=== PATIENT | female | born 1995 | race Caucasian/White ===

== ENCOUNTER 2019-04-28 11:32 | Observation (INO) | payer OTHER, MEDICAID ==
[2019-04-28] MEDS ORDERED: Sodium Chloride 0.9% 1000 ML 1,000 ML IV SCH (12:45)
[2019-04-28] MEDS ORDERED: NORCO 5/325 MG PO PRN (12:46)
[2019-04-28] MEDS ORDERED: Zofran 4 MG/2 ML VIAL IV PRN (12:46)
[2019-04-28] MEDS ORDERED: MORPHINE SULFATE 10 MG/ML IV PRN (12:48)
[2019-04-28 12:53] LABS: Absolute Neutrophil Ct (ANC) 8.81 (1.4-6.9); BASOPHIL % 0.2 % (0.0-0.4); Basophil (Absolute #) 0.02 (0-0.4); Eosinophil % 0.4 % (0.00-5.0); Eosinophil (Absolute #) 0.05 (0-0.5); Hematocrit 30.6 % (35-47); Hemoglobin 10.6 gm/dl (12.0-16.0); Lymphocyte (Absolute #) 1.63 (1.0-4.6); Lymphocytes % 14.6 % (24.0-44.0); Mean Cell Volume 92.7 fl (78-100); Mean Corpuscular Hemoglobin 32.1 pg (26-32); Mean Corpuscular Hgb Concent. 34.6 g/dl (32-36); Mean Platelet Volume 10.3 fl (6-9.5); Monocyte (Absolute #) 0.66 (0.0-1.3); Monocytes % 5.9 % (0.0-12.0); Neutrophil % 78.9 % (36.0-66.0); Platelet Count 196 K/mm3 (150-450); Red Cell Distribution Width 13.2 % (11.5-14.0); White Blood Count 11.2 K/mm3 (4.0-10.5)
[2019-04-28 12:58] LABS: ALBUMIN 3.7 g/dL (3.5-5.0); ALKALINE PHOSPHATASE 55 U/L (38-126); ANION GAP 11.2 MEQ/L (5-15); BLOOD UREA NITROGEN 4 mg/dL (7-17); CHLORIDE 110 mmol/L (98-107); Carbon Dioxide 22 mmol/L (22-30); Creatinine 1 0.36 mg/dL (0.52-1.04); Glucose 78 mg/dL (74-106); Potassium 3.8 mmol/L (3.5-5.1); SGOT/AST 33 U/L (14-36); SGPT/ALT 34 U/L (0-35); SODIUM 139 mmol/L (137-145); Total Protein 6.9 g/dL (6.3-8.2)
--- NOTE | 2019-04-28 13:42 | XRAY ---
Indication: Right lower quadrant pain. UTI. Two-dimensional targeted ultrasound of the right lower quadrant of the abdomen performed. Appendix not identified. No solid/cystic mass or abnormal fluid collection. Impression: Negative targeted right lower quadrant sonogram.
--- NOTE | 2019-04-28 13:45 | XRAY ---
Indication: Right lower quadrant pain. UTI. 2-dimensional OB ultrasound performed. Comparison: None There is a single viable intrauterine currently in cephalic presentation. Normal four-chamber heart with heart rate 150 bpm. Normal three-vessel cord and cord insertion. Visualized spine, stomach, kidneys, and bladder are unremarkable. Anterior placenta without abruption/previa. Cervical length measures 3.5 cm. BPD measures 4.05 cm corresponding to 18 weeks 2 days. HC measures 14.69 cm corresponding to 17 weeks 6 days. AC measures 11.92 cm corresponding to 17 weeks 4 days. FL measures 2.51 cm corresponding to 17 weeks 4 days. NEAL is 15.1 cm. Impression: Single viable intrauterine with mean gestational age 17 weeks 6 days. Expected date confinement is September 30, 2019.
[2019-04-28] MEDS: Lactated Ringers 1,000 ML IV SCH (14:07)
[2019-04-28] MEDS: ROCEPHIN 1 Gm-D5w 50 ml Bag** 1 G/50 ML IVPB IV SCH (14:07)
[2019-04-28] MEDS: THERAGRAN MULTIVITAMIN PO SCH (14:41)
[2019-04-28] MEDS: TYLENOL 325 MG PO PRN ×2 (14:41→21:34)
[2019-04-29] MEDS: Lactated Ringers 1,000 ML IV SCH ×3 (00:26→19:51)
[2019-04-29] MEDS: TYLENOL 325 MG PO PRN (07:32)
--- NOTE | 2019-04-29 08:09 | PCM.HP.ADD ---
Addendum to History & Physical - History & Physical Addendum Addendum to History & Physical: This certifies that the History & Physical in the electronic chart reflects the current health status of the patient. If there are changes in the H&P these changes/exceptions are listed as follows.
--- NOTE | 2019-04-29 08:31 | PCM.NOTE ---
Date and Time: 04/29/19824 Subjective Assessment: Pt is feeling better, still having 4/10 RLQ pain with movement (but no pain with rest). No nausea. Iris po. - Review of Systems Constitutional: No Fever Abdominal/Gastrointestinal: Abdominal Pain Objective Exam General Appearance: no apparent distress, alert Neurologic Exam: oriented x 3, cooperative Skin Exam: normal color, warm, dry, No rash Ears, Nose, Throat Exam: moist mucous membranes Neck Exam: normal inspection Respiratory Exam: normal breath sounds, lungs clear, No crackles/rales, No rhonchi, No wheezing Cardiovascular Exam: regular rate/rhythm, normal heart sounds, No murmur Gastrointestinal/Abdomen Exam: soft, normal bowel sounds, tenderness (RLQ), other (gravid), No guarding Extremity Exam: normal inspection, No pedal edema, No swelling Back Exam: normal inspection, No rash OBJECTIVE DATA Vital Signs: Vital Signs - 24 hr Temp Pulse Resp BP BP Pulse Ox 04/29/19 08:00 98.0 F 73 18 105/61 95 04/29/19 04:00 98.1 F 65 18 99/54 95 04/28/19 23:56 97.9 F 66 18 106/59 96 04/28/19 20:00 98.3 F 71 18 115/64 98 04/28/19 16:00 97.9 F 77 16 111/59 95 04/28/19 11:56 98.2 F 70 18 119/62 96 04/28/19 11:46 98.0 F 70 16 199/62 96 Pain Assessment - Last Documented Pain Intensity 5 Pain Scale Used 0-10 Pain Scale Intake and Output: Intake & Output 04/26/19 04/27/19 04/28/19 04/29/19 11:59 11:59 11:59 11:59 Intake Total 860 Output Total 3550 Balance -2690 Weight 67.6 kg Lab Results: Lab Results-Last 24 Hours 04/28/19 04/28/19 Range/Units 12:40 12:40 WBC 11.2 H (4.0-10.5) K/mm3 RBC 3.30 L (4.1-5.4) M/mm3 Hgb 10.6 L (12.0-16.0) gm/dl Hct 30.6 L (35-47) % MCV 92.7 (78-100) fl MCH 32.1 H (26-32) pg MCHC 34.6 (32-36) g/dl RDW 13.2 (11.5-14.0) % Plt Count 196 (150-450) K/mm3 MPV 10.3 H (6-9.5) fl Gran % 78.9 H (36.0-66.0) % Eos # (Auto) 0.05 (0-0.5) Absolute Lymphs (auto) 1.63 (1.0-4.6) Absolute Monos (auto) 0.66 (0.0-1.3) Lymphocytes % 14.6 L (24.0-44.0) % Monocytes % 5.9 (0.0-12.0) % Eosinophils % 0.4 (0.00-5.0) % Basophils % 0.2 (0.0-0.4) % Absolute Granulocytes 8.81 H (1.4-6.9) Basophils # 0.02 (0-0.4) Sodium 139 (137-145) mmol/L Potassium 3.8 (3.5-5.1) mmol/L Chloride 110 H (98-107) mmol/L Carbon Dioxide 22 (22-30) mmol/L Anion Gap 11.2 (5-15) MEQ/L BUN 4 L (7-17) mg/dL Creatinine 0.36 L (0.52-1.04) mg/dL Estimated GFR > 60.0 ML/MIN Glucose 78 (74-106) mg/dL Calcium 9.0 (8.4-10.2) mg/dL Total Bilirubin 0.30 (0.2-1.3) mg/dL AST 33 (14-36) U/L ALT 34 (0-35) U/L Alkaline Phosphatase 55 (38-126) U/L Serum Total Protein 6.9 (6.3-8.2) g/dL Albumin 3.7 (3.5-5.0) g/dL Radiology Exams: Radiology Procedures Category Date Time Status ABDOMINAL-LIMITED [US] Routine Exams 04/28/19 12:15 Completed OB >14 WKS 1st GESTATION [US] Routine Exams 04/28/19 12:40 Completed Assessment/Plan (1) UTI (urinary tract infection) Current Visit: Yes Status: Acute Qualifiers: Urinary tract infection type: acute cystitis Hematuria presence: without hematuria Qualified Code(s): N30.00 - Acute cystitis without hematuria Assessment & Plan: Urine culture + for gram negative rods (UA was done at [facility], so culture result is available in [place]). U/s with appendix not visualized. Day #2 IV rocephin. Pt to stay at least one more day (if culture results in and pt feeling better tomorrow, may go home then). Code(s): N39.0 - URINARY TRACT INFECTION, SITE NOT SPECIFIED (2) Current Visit: Yes Status: Acute Qualifiers: Weeks of gestation: 16 weeks Qualified Code(s): Z3A.16 - 16 weeks gestation of Assessment & Plan: 16w 6d by LMP (sure) - u/s with nl 17wk fetus. FHT q shift. Code(s): Z34.90 - ENCNTR FOR SUPRVSN OF NORMAL , UNSP, UNSP TRIMESTER
[2019-04-29] MEDS: ROCEPHIN 1 Gm-D5w 50 ml Bag** 1 G/50 ML IVPB IV SCH (09:50)
[2019-04-29] MEDS: THERAGRAN MULTIVITAMIN PO SCH (09:50)
[2019-04-29] MEDS ORDERED: NON-FORMULARY ITEM (Prenatal Vits W-Ca,Fe,Fa(<1mg) [Prenatal] 1 EACH) PO SCH (10:00)
[2019-04-30] MEDS: TYLENOL 325 MG PO PRN (00:28)
[2019-04-30] MEDS: Lactated Ringers 1,000 ML IV SCH (03:40)
[2019-04-30 07:29] VITALS: BP 113/63; PULSE 72; O2SAT 99
--- NOTE | 2019-04-30 09:29 | PCM.DS ---
Discharge Summary Date of Admission: 04/28/19 11:32 Date of Discharge: 04/30/19 Admitting Physician: RANCHO STRICKLAND Primary Care Provider: YOJANA VERAS Allergies Allergies No Known Drug Allergies Allergy (Verified 04/28/19 11:58) Hospital Summary - Hospital Course Hospital Course: 23 yr old female 16 weeks and 5 days directly admitted from office for R lower quadrant pain and UTI. Patient was having significant R sided abdominal pain. OB US performed demonstrated : Single viable intrauterine with mean gestational age 17 weeks 6 days. Expected date confinement is September 30, 2019. Patient also had a abdominal US which was neg for acute appendicitis or any other pathology. Patient was started on IV fluids and Rocephin with urine cultures still pending. Patient was also started on pain medication and patient's symptoms started to improve. Patient reports this am she feels well enough to go home. Patient denies any abdominal pain,nausea or vomiting, vision changes, diarrhea or constipation. Patient reports that she has had a headache on and off during admission and reports the Tyelnol is helping. - Vitals & Intake/Output Vital Signs: Vital Signs Temperature 97.8 F 04/30/19 07:28 Pulse Rate 72 04/30/19 07:28 Respiratory Rate 18 04/30/19 07:28 Blood Pressure 113/63 04/30/19 07:28 O2 Sat by Pulse Oximetry 99 04/30/19 07:28 Intake & Output: Intake & Output 04/27/19 04/28/19 04/29/19 04/30/19 11:59 11:59 11:59 11:59 Intake Total 1340 4237 Output Total 3550 3500 Balance -2210 737 Weight 67.6 kg - Lab Result Diagrams: 04/28/19 12:40 04/28/19 12:40 - Radiology Exams Ordered Rad Exams-Entire Visit: Radiology Procedures Category Date Time Status ABDOMINAL-LIMITED [US] Routine Exams 04/28/19 12:15 Completed OB >14 WKS 1st GESTATION [US] Routine Exams 04/28/19 12:40 Completed Discharge Exam General Appearance: no apparent distress Neurologic Exam: alert, oriented x 3, cooperative, normal mood/affect Eye Exam: eyes nml inspection Ears, Nose, Throat Exam: normal ENT inspection Neck Exam: normal inspection Respiratory Exam: normal breath sounds, lungs clear, No respiratory distress, No diminished breath sounds Cardiovascular Exam: regular rate/rhythm, normal heart sounds, No murmur Gastrointestinal/Abdomen Exam: soft, normal bowel sounds Back Exam: normal inspection Extremity Exam: normal inspection, No pedal edema Skin Exam: normal color, warm, dry, No rash Final Diagnosis/Problem List - Final Discharge Diagnosis/Problem (1) UTI (urinary tract infection) Current Visit: Yes Status: Acute Assessment & Plan: Symptoms have resolved. Culture showed ecoli sensitive to cephalsporins. Patient has received two doses and will be sent home with 5 days of keflex to complete course. Patient has remained afebrile and VSS. Patient was encouraged to take probiotic with antibiotics. Code(s): N39.0 - URINARY TRACT INFECTION, SITE NOT SPECIFIED (2) Current Visit: Yes Status: Acute Assessment & Plan: US performed in hospital showed normal appearing inter-uterine preg measuring appropriately. FHT wnl at 150. Patient reports she is taking her vitamins. Discussed Tyelnol for headaches and discomfort. Patient will follow up for routine care. Code(s): Z34.90 - ENCNTR FOR SUPRVSN OF NORMAL , UNSP, UNSP TRIMESTER - Discharge Disposition: Home, Self-Care Condition: Good Prescriptions: New Cephalexin Mh 500 mg [Keflex 500 mg] 500 mg PO 12 5 Days #10 capsule Continue Vits W-Ca,Fe,FA(<1Mg) [] 1 each PO DAILY Follow up with: YOJANA VERAS [Primary Care Provider] - 1 Week
[2019-04-30] MEDS: ROCEPHIN 1 Gm-D5w 50 ml Bag** 1 G/50 ML IVPB IV SCH (10:22)
[2019-04-30] MEDS: THERAGRAN MULTIVITAMIN PO SCH (10:45)
== END 2019-04-30 11:09 | disposition home or self-care (01) ==
LOC: INTOOBSV 11:32 → OBSVTOIN 11:32 → MED SURG 11:32
PROVIDERS: ADMIT Family Medicine; ATTEND Family Medicine
DX: O23.42 Unspecified infection of urinary tract in pregnancy, second trimester (principal); Z3A.17 17 weeks gestation of pregnancy
CPT/HCPCS: 36415; 76705; 76805; 80053; 81015; 85025; 87077; 87086; 87186; G0378; J0696; A9270-GY

== ENCOUNTER 2019-10-02 16:30 | Inpatient (IN) | payer OTHER, MEDICAID ==
[2019-10-02] MEDS ORDERED: Lactated Ringers 1,000 ML IV ONE ×3 (17:05→18:13)
[2019-10-02] MEDS ORDERED: Ephedrine Sulfate 50 MG/ML IV PRN (17:23)
[2019-10-02] MEDS ORDERED: OB EPIDURAL NAROPIN/SUFENTANIL IN NACL EPIDURAL PRN (17:23)
[2019-10-02 17:40] LABS: Hematocrit 35.3 % (35-47); Hemoglobin 11.7 gm/dl (12.0-16.0); Mean Cell Volume 92.9 fl (78-100); Mean Corpuscular Hemoglobin 30.8 pg (26-32); Mean Corpuscular Hgb Concent. 33.1 g/dl (32-36); Mean Platelet Volume 11.9 fl (7.5-11.0); Platelet Count 198 K/mm3 (150-450); Red Cell Distribution Width 13.9 % (11.5-14.0); White Blood Count 12.8 K/mm3 (4.0-10.5)
[2019-10-02] MEDS ORDERED: PITOCIN 30 UNITS/ LR 500 ML 500 ML IV ONE (19:13)
[2019-10-02] MEDS ORDERED: XYLOCAINE 1% HCL 20 ML MDV ONE (19:15)
[2019-10-02] MEDS ORDERED: Zofran 4 MG/2 ML VIAL IV STA (19:18)
[2019-10-02 19:28] VITALS: O2SAT 100
[2019-10-02] MEDS ORDERED: PITOCIN 30 UNITS/ LR 500 ML 500 ML IV SCH (19:45)
[2019-10-02] MEDS ORDERED: XYLOCAINE 1% HCL 20 ML MDV IJ PRN (20:20)
[2019-10-02 20:38] LABS: Amphetamine,Urine NEGATIVE (NEGATIVE); Barbiturate,Urine NEGATIVE (NEGATIVE); Benzodiazepine,Urine NEGATIVE (NEGATIVE); Cocaine,Urine NEGATIVE (NEGATIVE); Methadone,Urine NEGATIVE (NEGATIVE); Opiate,Urine NEGATIVE (NEGATIVE); PCP,Urine NEGATIVE (NEGATIVE); THC,Urine NEGATIVE (NEGATIVE)
[2019-10-02] MEDS ORDERED: Anucort-HC SUPPOSITORY PR PRN (20:52)
[2019-10-02] MEDS ORDERED: Mylicon 80MG PO PRN (20:52)
[2019-10-02] MEDS ORDERED: TYLENOL EXTRA STRENGTH 500 MG PO PRN (20:52)
[2019-10-02] MEDS ORDERED: Dulcolax 10 MG SUPP PR PRN (20:52)
[2019-10-02] MEDS ORDERED: CORTISONE 1% CREAM TP PRN (20:52)
[2019-10-02] MEDS ORDERED: TUCKS TP PRN (20:52)
[2019-10-02] MEDS ORDERED: Dermoplast Spray TP PRN (20:52)
[2019-10-02] MEDS ORDERED: LANSINOH 40 GM TOP PRN (20:52)
[2019-10-02] MEDS ORDERED: NORCO 5/325 MG PO PRN (20:52)
[2019-10-02] MEDS: Colace 100 MG PO SCH (23:45)
[2019-10-03 05:30] LABS: Hematocrit 30.3 % (35-47); Hemoglobin 10.1 gm/dl (12.0-16.0); Mean Cell Volume 93.2 fl (78-100); Mean Corpuscular Hemoglobin 31.1 pg (26-32); Mean Corpuscular Hgb Concent. 33.3 g/dl (32-36); Mean Platelet Volume 12.5 fl (7.5-11.0); Platelet Count 168 K/mm3 (150-450); Red Blood Count 3.25 M/mm3 (4.1-5.4); Red Cell Distribution Width 14.1 % (11.5-14.0); White Blood Count 17.6 K/mm3 (4.0-10.5)
[2019-10-03] MEDS ORDERED: Adacel Vial IM ONE (09:00)
[2019-10-03 09:15] LABS: ANISOCYTOSIS 1+; BAND 4 % (0.0-2.0); Lymphocytes 3 % (24-44); Monocyte 7 % (0.0-12.0); Neutrophils 86 % (36.0-66.0); Platelet Estimate NORMAL (NORMAL); Total Cells Counted 100; Toxic Granulation 1+
[2019-10-03] MEDS ORDERED: M-M-R II Vaccine With Diluent SQ ONE (10:00)
[2019-10-03] MEDS: FERREX 150 PO SCH (10:53)
[2019-10-03] MEDS: MOTRIN 400 MG PO PRN (10:53)
[2019-10-03] MEDS: Colace 100 MG PO SCH (10:53)
[2019-10-04] MEDS: Colace 100 MG PO SCH ×3 (00:23→23:36)
[2019-10-04] MEDS: MOTRIN 400 MG PO PRN ×2 (00:23→18:21)
[2019-10-04] MEDS: FERREX 150 PO SCH (10:55)
[2019-10-04 18:01] VITALS: PULSE 79
[2019-10-04 18:47] VITALS: BP 114/72
== END 2019-10-04 23:50 | disposition home or self-care (01) | DRG 807 ==
LOC: OBSVTOIN 16:30 → OB 16:30
PROVIDERS: ADMIT Family Medicine; ATTEND Family Medicine
PROC: 10E0XZZ Delivery of Products of Conception, External Approach (ICD-10-PCS; principal; 2019-10-02)
PROC: 0KQM0ZZ Repair Perineum Muscle, Open Approach (ICD-10-PCS; 2019-10-02)
DX: O71.4 Obstetric high vaginal laceration alone (principal); Z37.0 Single live birth; Z3A.39 39 weeks gestation of pregnancy
CPT/HCPCS: 36415; 80307; 85025; 85027; 87340; 90471; 90707; 90715; 94799; G0378; J2405; J2590; J2795; A9270-GY